=== PATIENT | female | born 1990 | race African-American/Black ===

== ENCOUNTER 2020-09-28 03:41 | Emergency (ER) | payer MEDICARE, OTHER ==
[~2020-09-28] VITALS: Ht 175.3 cm; Wt 59.0 kg
--- NOTE | 2020-09-28 05:30 | NUR ---
PRESENTED TO THE ER FOR C/O SI W/ PLAN TO OVERDOSE ON SLEEPING PILLS. PT AMBULATORY W/ STEADYU GAITS TO BED 15. UNABLE TO PROVIDE URINE SAMPLE AT HIS TIME. REMAINED ON CLOSE SUPERVISION OF A SITTER Daly KITCHEN PRCDYANION IN PLACE, VSKeith. WILL CONT TO MONITOR ,
[2020-09-28 05:34] LABS: BASOPHILS # (AUTO) 0.1 K/uL (0.0-0.2); EOSINOPHILS % (AUTO) 1.4 % (0.0-6.0); HEMATOCRIT 41 % (33-45); HEMOGLOBIN 13.2 g/dL (11.5-14.8); LYMPHOCYTES # (AUTO) 2.7 K/uL (0.8-4.8); LYMPHOCYTES % (AUTO) 50.8 % (20.0-44.0); MEAN CORPUSCULAR HGB CONC 33 g/dl (31.0-36.0); MEAN CORPUSCULAR VOLUME 85 fL (82-100); MONOCYTES # (AUTO) 0.4 K/uL (0.1-1.30); MONOCYTES % (AUTO) 7.2 % (2.0-12.0); NEUTROPHILS # (AUTO) 2.1 K/uL (1.8-8.9); NEUTROPHILS % (AUTO) 39.6 % (43.0-81.0); PLATELET COUNT (AUTO) 384 K/uL (150-450); RED BLOOD CELL COUNT(AUTO) 4.76 MIL/uL (4.0-5.2); WHITE BLOOD COUNT (AUTO) 5.4 K/uL (4.3-11.0)
[2020-09-28 05:41] LABS: CALCIUM, SERUM 8.8 mg/dL (8.5-10.1); CARBON DIOXIDE 29 mmol/L (21-32); CHLORIDE 104 mmol/L (98-107); CREATININE 0.9 mg/dL (0.6-1.3); GLUCOSE 68 mg/dL (74-106); POTASSIUM 3.5 mmol/L (3.5-5.1); SODIUM SERUM 141 mmol/L (136-145); UREA NITROGEN, BLOOD 16 mg/dL (7-18)
[2020-09-28 05:49] LABS: ACETAMINOPHEN 0 ug/ml (10-30); ALANINE AMINOTRANSFERASE 55 U/L (12-78); ALBUMIN 3.5 g/dL (3.4-5.0); ALKALINE PHOSPHATASE 111 U/L (46-116); ASPARTATE AMINOTRANSFERASE 47 U/L (15-37); BILIRUBIN,DIRECT 0.1 mg/dL (0.0-0.2); BILIRUBIN,TOTAL 0.3 mg/dL (0.2-1.0); TOTAL PROTEIN, SERUM 8.2 g/dL (6.4-8.2)
[2020-09-28] MEDS ORDERED: OLANZAPINE 10 MG VIAL IM ONE (05:49)
[2020-09-28 05:50] LABS: ALCOHOL, BLOOD < 3 mg/dL (0-0)
[2020-09-28] MEDS: OLANZAPINE 10 MG VIAL IM ONE (05:55)
--- NOTE | 2020-09-28 09:10 | NUR ---
[facility]
--- NOTE | 2020-09-28 09:18 | NUR ---
CALLED [facility] [employer] [employer] BACK FEEDER... IN A MEETING AND WILL COME LATER
[2020-09-28 09:36] LABS: BILIRUBIN,URINE Negative (NEGATIVE); COLOR,URINE YELLOW (YELLOW); LEUKOCYTE ESTERASE ,URINE Trace (NEGATIVE); NITRITE, URINE Negative (NEGATIVE); PROTEIN,URINE Negative (NEGATIVE); UGLUCOSE Negative (NEGATIVE); UROBILINOGEN,URINE 0.2 EU/dL (0.2)
[2020-09-28 09:55] LABS: RBC,URINE 0-2 /HPF (0-2); SQUAMOUS EPITHELIAL CELL,UR Few /HPF (None Seen); WBC,URINE 0-3 /HPF (0-3)
[2020-09-28 09:56] LABS: BACTERIA,URINE Few /HPF (None Seen)
--- NOTE | 2020-09-28 11:30 | NUR ---
Rn Embedded note: environmental services manager consult requested for suicidal ideation and substance use. Patient is a 30-year-old, -[place] female. SW attempted to interview the patient but the patient presented lethargic and was unarousable. Per chart, patient presented to the emergency department on 09/28/20 with complaints of suicidal ideation with a plan to overdose on sleeping pills. ED medical staff coordinator faxed clinicals to [facility], , for review. PLAN: SS will follow up at a later time to interview the patient and assess her needs for community resources.
--- NOTE | 2020-09-28 13:54 | NUR ---
Sheet Metal Installer note: Per [facility] request, OCT[facility] re-faxed clinicals to [facility], .
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
--- NOTE | 2020-09-28 17:49 | NUR ---
REFAXED LABS TO [facility]
--- NOTE | 2020-09-28 18:11 | NUR ---
PT ACCEPTED TO [facility] UNDER [facility]. TOLEDO PLEASE CALL [phone] UNIT TWO
--- NOTE | 2020-09-28 18:15 | NUR ---
CALLED TRANSPORT [facility] 30 MINS.
[2020-09-28 19:00] VITALS: BP 118/81
--- NOTE | 2020-09-28 19:03 | NUR ---
patient picked up by private ambulance going to [facility] in no distress.
== END 2020-09-28 19:03 ==
LOC: ER 03:47
DX: R45.851 Suicidal ideations (principal); F31.9 Bipolar disorder, unspecified; F20.9 Schizophrenia, unspecified; J45.909 Unspecified asthma, uncomplicated; Z20.822 Contact with and (suspected) exposure to COVID-19; F15.10 Other stimulant abuse, uncomplicated; F14.10 Cocaine abuse, uncomplicated; F17.200 Nicotine dependence, unspecified, uncomplicated
CPT/HCPCS: 36415; 80048; 80076; 80143; 80307; 80320; 81001; 84703; 85025; 87426; 96372; 99285; J3490; C9803; G0480

== ENCOUNTER 2021-10-25 01:10 | Emergency (ER) | payer MEDICARE, OTHER ==
[~2021-10-25] VITALS: Ht 180.3 cm; Wt 59.0 kg
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
--- NOTE | 2021-10-25 02:03 | NUR ---
URINE SAMPLE COLLECTED AND SENT TO LAB
[2021-10-25 02:39] LABS: BILIRUBIN,URINE NEGATIVE (NEGATIVE); COLOR,URINE YELLOW (YELLOW); LEUKOCYTE ESTERASE ,URINE NEGATIVE (NEGATIVE); NITRITE, URINE NEGATIVE (NEGATIVE); PROTEIN,URINE 100 mg/dl (NEGATIVE); UGLUCOSE 100 MG/DL mg/dL (NEGATIVE)
[2021-10-25 02:39] LABS: BASOPHILS % (AUTO) 0.5 % (0.0-2.0); EOSINOPHILS % (AUTO) 3.2 % (0.0-6.0); HEMATOCRIT 36 % (33-45); HEMOGLOBIN 11.9 g/dL (11.5-14.8); LYMPHOCYTES # (AUTO) 1.4 K/uL (0.8-4.8); LYMPHOCYTES % (AUTO) 19.9 % (20.0-44.0); MEAN CORPUSCULAR HGB CONC 33 g/dl (31.0-36.0); MEAN CORPUSCULAR VOLUME 85 fL (82-100); MONOCYTES # (AUTO) 0.4 K/uL (0.1-1.30); MONOCYTES % (AUTO) 5.9 % (2.0-12.0); NEUTROPHILS # (AUTO) 4.9 K/uL (1.8-8.9); NEUTROPHILS % (AUTO) 70.5 % (43.0-81.0); PLATELET COUNT (AUTO) 270 K/uL (150-450); RED BLOOD CELL COUNT(AUTO) 4.22 MIL/uL (4.0-5.2); WHITE BLOOD COUNT (AUTO) 6.9 K/uL (4.3-11.0)
[2021-10-25 02:59] LABS: CALCIUM, SERUM 8.3 mg/dL (8.5-10.1); CARBON DIOXIDE 26 mmol/L (21-32); CHLORIDE 103 mmol/L (98-107); CREATININE 1.1 mg/dL (0.6-1.3); GLUCOSE 64 mg/dL (74-106); POTASSIUM 3.2 mmol/L (3.5-5.1); SODIUM SERUM 137 mmol/L (136-145); UREA NITROGEN, BLOOD 13 mg/dL (7-18)
[2021-10-25 03:05] LABS: ALANINE AMINOTRANSFERASE 187 U/L (12-78); ALBUMIN 3.3 g/dL (3.4-5.0); ALKALINE PHOSPHATASE 141 U/L (46-116); ASPARTATE AMINOTRANSFERASE 346 U/L (15-37); BILIRUBIN,DIRECT 0.1 mg/dL (0.0-0.2); BILIRUBIN,TOTAL 0.2 mg/dL (0.2-1.0); TOTAL PROTEIN, SERUM 7.7 g/dL (6.4-8.2)
[2021-10-25 03:06] LABS: ACETAMINOPHEN < 2 ug/ml (10-30); ALCOHOL, BLOOD < 3 mg/dL (0-0)
--- NOTE | 2021-10-25 03:12 | NUR ---
[employer] AT PT'S BEDSIDE
--- NOTE | 2021-10-25 03:14 | NUR ---
COVID SWAB COLLECTED AND SENT TO LAB
--- NOTE | 2021-10-25 03:26 | NUR ---
BS 64; PER DR. LOPEZ ORDER, TO GIVE PT SNACKS AND JUICE. OFFERED PT APPLE JUICE AND PUDDING. WILL REASSES LATER
[2021-10-25] MEDS ORDERED: POTASSIUM CHLORIDE 20 MEQ TAB.PRT.SR PO ONE (03:44)
[2021-10-25] MEDS: POTASSIUM CHLORIDE 20 MEQ TAB.PRT.SR PO ONE (03:48)
--- NOTE | 2021-10-25 08:00 | NUR ---
PT ACCEPTED AT [facility] UNDER DR. TOLEDO [phone] FOR REPORT.
--- NOTE | 2021-10-25 08:10 | NUR ---
CALLED FACILITY TO GIVE REPORT, CHARGE NURSE TENDING TO PT, TOLD HE WOULD CALL BACK FOR REPORT.
--- NOTE | 2021-10-25 08:14 | NUR ---
[facility] TRANSPORT ETA 10AM [facility]IA [facility].
--- NOTE | 2021-10-25 09:10 | NUR ---
REPORT GIVEN TO THALIA FOR JANIE
[2021-10-25 10:14] VITALS: BP 121/76
--- NOTE | 2021-10-25 10:31 | NUR ---
transported to [facility] in stable condition.
== END 2021-10-25 10:32 ==
LOC: ER 01:13
DX: T40.411A Poisoning by fentanyl or fentanyl analogs, accidental (unintentional), initial encounter (principal); F15.10 Other stimulant abuse, uncomplicated; Y92.414 Local residential or business street as the place of occurrence of the external cause; F25.9 Schizoaffective disorder, unspecified; F31.9 Bipolar disorder, unspecified; R45.851 Suicidal ideations; J45.909 Unspecified asthma, uncomplicated; Z59.00 Homelessness unspecified; F17.210 Nicotine dependence, cigarettes, uncomplicated; Z20.822 Contact with and (suspected) exposure to COVID-19
CPT/HCPCS: 36415; 80048-TC; 80076-TC; 84703-TC; 85025-TC; C9803; G0480